=== PATIENT | female | born 1985 | race Caucasian/White ===

== ENCOUNTER → 2022-10-22 | Outpatient (CLI) | payer BC ==
[2022-10-22 16:43] LABS: HCT 45.1 % (37.2-46.3); HGB 14.8 g/dL (12.0-15.0); MCH 30.5 pg (27.0-32.0); MCHC 32.8 g/dL (32.0-37.0); Mean Platelet Volume 9.9 fL (9.5-12.2); NRBC Per 100 WBC 0 /100 WBCS (0.0-0.0); Platelet Count 427 X 10*3/uL (140-440); RBC 4.85 X 10*6/uL (4.10-5.20); RDW 12.7 % (11.5-14.5)
== END | disposition home or self-care (01) ==
LOC: LABPAT 10:46
PROVIDERS: ATTEND Obstetrics & Gynecology
DX: Z01.812 Encounter for preprocedural laboratory examination (principal)
CPT/HCPCS: 85027

== ENCOUNTER 2022-10-24 07:40 | Day surgery (SDC) | payer BC ==
[2022-10-21 14:40] VITALS: BMI 28.1
[~2022-10-24 07:40] MED LIST: DEXAMETHASONE SOD PHOSPHATE 4 MG/ML 1 ML VIAL IV ONE; HYDROmorphone 0.5 MG/0.5 ML SYRINGE IVP PRN; LACTATED RINGERS 1,000 ML IV SCH; LIDOCAINE 1% (10MG/ML) FOR IV START INTRADERMA PRN; ONDANSETRON 4 MG/2 ML VIAL IVP ONE; Pre Op ABX Message 1 EACH MISC MISCELLANE ONE; SCOPOLAMINE 1 MG/72 HR PATCH TRANSDERM ONE
--- NOTE | 2022-10-24 08:12 | P.HPOB ---
History of Present Illness H&P Date: 10/24/22 Chief Complaint: missed 37 year old presents for suction D&C due to 8 week missed . Review of Systems All systems: negative Constitutional: Denies chills, Denies fever Eyes: denies blurred vision, denies pain Ears, nose, mouth and throat: Denies headache, Denies sore throat Cardiovascular: Denies chest pain, Denies shortness of breath Respiratory: Denies cough Gastrointestinal: Denies abdominal pain, Denies diarrhea, Denies nausea, Denies vomiting Genitourinary: Denies dysuria, Denies hematuria Musculoskeletal: Denies myalgias Integumentary: Denies pruritus, Denies rash Neurological: Denies numbness, Denies weakness Psychiatric: Denies anxiety, Denies depression Endocrine: Denies fatigue, Denies weight change Past Medical History Past Medical History: Hypertension Additional Past Medical History / Comment(s): "No current treatment needed for hypertension, BP under control now". History of Any Multi-Drug Resistant Organisms: None Reported Past Surgical History: Cholecystectomy Additional Past Surgical History / Comment(s): Ovarian cyst removed. Past Anesthesia/Blood Transfusion Reactions: No Reported Reaction, Motion Sickness Past Psychological History: Depression Smoking Status: Former smoker Past Alcohol Use History: Occasional Additional Past Alcohol Use History / Comment(s): Quit smoking 6 months ago. Used to have alcohol ocassionally, none recently. Past Drug Use History: None Reported - Past Family History Sister(s) Additional Family Medical History / Comment(s): cholecystectomy. pt's mother, diabetes, cancer, thyroid disorder Mother Family Medical History: Cancer, Diabetes Mellitus, Thyroid Disorder Medications and Allergies Home Medications Medication Instructions Recorded Confirmed Type Immune Support Supplement 1 tab PO DAILY 10/21/22 10/21/22 History Loratadine [Claritin] 10 mg PO DAILY 10/21/22 10/21/22 History Vit No.179/Iron/Folic 1 each PO DAILY 10/21/22 10/21/22 History [ Tablet] Allergies Allergy/AdvReac Type Severity Reaction Status Date / Time surgical tape Allergy Rash/Hives Uncoded 10/21/22 14:25 Exam Osteopathic Statement: *. No significant issues noted on an osteopathic structural exam other than those noted in the History and Physical/Consult. Heart: Regular rate and rhythm Lungs: Clear to auscultation bilaterally Abdomen: Soft, nontender Extremities: Negative Homans sign Assessment and Plan (1) Missed Current Visit: Yes Status: Acute Code(s): O02.1 - MISSED SNOMED Code(s): 27477834 Plan: suction D&C
[2022-10-24 08:17] VITALS: RESP 16
[2022-10-24] MEDS ORDERED: MIDAZOLAM 2 MG/2 ML VIAL ONE (08:35)
[2022-10-24] MEDS ORDERED: LIDOCAINE 2% INJ 20 MG/ML (2 ML VIAL) ONE (08:35)
[2022-10-24] MEDS ORDERED: PROPOFOL 10 MG/ML 20 ML VIAL IV ONE (08:35)
[2022-10-24] MEDS ORDERED: fentaNYL (PF) 50 MCG/ML 2 ML AMP ONE (08:35)
--- NOTE | 2022-10-24 09:13 | P.OP ---
Date of Procedure: 10/24/22 Preoperative Diagnosis: 1. missed ab Postoperative Diagnosis: same Procedure(s) Performed: Suction D&C Anesthesia: MAC Surgeon: Leatha Pradhan Estimated Blood Loss (ml): 250 IV fluids (ml): 500 Urine output (ml): 5 Pathology: other (Products of conception) Condition: stable Disposition: PACU Description of Procedure: Patient is taken the operating general anesthesia was obtained without difficulty. She is prepped draped in normal sterile fashion dorsal lithotomy position, legs placed in candy cane stirrups. Bladder drained of all urine. Weighted speculum place in vagina and anterior lip the cervix was grasped with single-tooth tenaculum. The cervix was dilated to #8 Hegar dilator. The #8 curved suction curet was introduced into the uterus and hooked up to suction. Several passes were made to get the blood and tissue was removed. Sharp curet was gently used to ensure all tissue had been removed and the suction curet was passed a few more times. Hemostasis was achieved and the uterus feels firm. All instruments removed from the vagina. Patient procedure well, sponge and instrument counts correct 2. She was taken to recovery in stable condition.
[2022-10-24 09:17] VITALS: TEMP 97.2
[2022-10-24 10:18] VITALS: BP 131/90; PULSE 78
== END 2022-10-24 10:41 | disposition home or self-care (01) ==
LOC: OR 07:40
PROVIDERS: ATTEND Obstetrics & Gynecology
DX: O02.1 Missed abortion (principal); Z3A.08 8 weeks gestation of pregnancy; I10 Essential (primary) hypertension; Z90.49 Acquired absence of other specified parts of digestive tract; Z98.890 Other specified postprocedural states; F32.A Depression, unspecified; Z87.891 Personal history of nicotine dependence; F10.20 Alcohol dependence, uncomplicated; Z83.3 Family history of diabetes mellitus; Z83.49 Family history of other endocrine, nutritional and metabolic diseases; Z79.1 Long term (current) use of non-steroidal anti-inflammatories (NSAID); Z79.810 Long term (current) use of selective estrogen receptor modulators (SERMs); Z91.048 Other nonmedicinal substance allergy status
CPT/HCPCS: 59820; 86900; 86901; 88305; 86850; J2250; J1100; J2405; J3010; J2704; J2001